=== PATIENT | female | born 1990 | race African-American/Black ===

== ENCOUNTER 2020-05-03 12:38 | Inpatient (IN) | payer SELFPAY ==
[~2020-05-03] VITALS: Ht 157.5 cm; Wt 61.2 kg
[2020-05-03] MEDS ORDERED: MORPHINE SULFATE 4 MG/ML CPJ (NOT FOR IM USE) IV STA (12:57)
[2020-05-03] MEDS ORDERED: ONDANSETRON HCL 4MG/2ML INJ IV STA (12:57)
[2020-05-03 13:12] LABS: BASOPHILS % 0.3 % (0.0-2.0); EOSINOPHILS % 0.3 % (0.0-5.0); HEMATOCRIT. 40.9 % (36.0-48.0); HEMOGLOBIN. 14.2 g/dL (12.0-16.0); LYMPHOCYTES % 9.9 % (20.0-50.0); MEAN CORPUSCULAR HEMOGLOBIN 33.9 pg (28.0-32.0); MEAN CORPUSCULAR VOLUME 97.6 fL (81.0-99.0); MEAN PLATELET VOLUME 7.8 fl (7.4-10.4); MONOCYTES % 3.4 % (2.0-8.0); NEUTROPHILS % 86.1 % (40.0-76.0); PLATELET 284 x1000/uL (130-400); RED BLOOD CELL COUNT 4.19 mill/uL (4.2-5.4); RED CELL DISTRIBUTION WIDTH 13.6 % (11.6-14.6)
[2020-05-03 13:19] LABS: CHLORIDE 111 mEq/L (98-107)
[2020-05-03 13:23] LABS: PROTHROMBIN TIME 10.4 sec (9.6-11.0)
[2020-05-03 13:31] LABS: HCG SCREEN NEGATIVE
[2020-05-03 13:39] LABS: CLARITY URINE CLEAR (CLEAR); COLOR URINE YELLOW (YELLOW); KETONES URINE TRACE (NEGATIVE); LEUKOCYTE ESTERASE URINE NEGATIVE (NEGATIVE); NITRITE URINE NEGATIVE (NEGATIVE); OCCULT BLOOD URINE NEGATIVE (NEGATIVE); PH URINE 7.5 (4.5-8.0); PROTEIN URINE NEGATIVE (NEGATIVE); SPECIFIC GRAVITY URINE 1.021 (1.005-1.030); UROBILINOGEN URINE 0.2 E.U./dL (0.2-1.0)
[2020-05-03] MEDS ORDERED: ACETAMINOPHEN 325MG TABLET PO ONE (14:30)
[2020-05-03] MEDS ORDERED: IPRATROPIUM/ALBUTEROL 0.5-3(2.5)MG/3ML NEB NEB PRN (15:45)
[2020-05-03] MEDS ORDERED: GUAIFENESIN 200MG/10ML SUGAR FREE UDC PO PRN (15:45)
[2020-05-03] MEDS ORDERED: NITROGLYCERIN 0.4MG TABLET SL SL PRN (15:45)
[2020-05-03] MEDS ORDERED: MAGNESIUM/ALUMINUM HYDROXIDE/SIMETHICONE 30ML UDC PO PRN (15:45)
[2020-05-03] MEDS ORDERED: LORAZEPAM 0.5MG TABLET PO PRN (15:45)
[2020-05-03] MEDS ORDERED: DOCUSATE SODIUM 100MG CAPSULE PO PRN (15:45)
[2020-05-03] MEDS ORDERED: CLONIDINE 0.1MG TABLET PO PRN (15:45)
[2020-05-03] MEDS ORDERED: ACETAMINOPHEN 325MG TABLET PO PRN ×2 (15:45)
[2020-05-03 16:00] VITALS: BP 148/91
[2020-05-03] MEDS ORDERED: ALBU2.5V13 NEB (17:49)
[2020-05-03] MEDS ORDERED: ALBU4TAB6 PO (17:49)
[2020-05-03] MEDS ORDERED: PROT20 PO (17:49)
[2020-05-03] MEDS ORDERED: ONDA4TAB5 PO (17:49)
[2020-05-03] MEDS: ONDANSETRON HCL 4MG/2ML INJ IV PRN (17:50)
[2020-05-03 18:02] VITALS: BP 148/91
[2020-05-03] MEDS: SUCRALFATE 1 G/10 ML UDC PO SCH (18:28)
[2020-05-03 20:00] VITALS: BP 152/89
[2020-05-03] MEDS ORDERED: ZOLPIDEM TARTRATE 5MG TABLET PO PRN (21:00)
[2020-05-03] MEDS ORDERED: DIPHENHYDRAMINE 25MG CAPSULE PO PRN (21:45)
[2020-05-03] MEDS: KETOROLAC 15MG/ML VIAL IV PRN (22:46)
[2020-05-04] VITALS: BP 137/95
[2020-05-04 03:06] LABS: *AMPHETAMINES SCREEN URINE NEGATIVE (NEGATIVE); *BARBITURATES SCREEN URINE NEGATIVE (NEGATIVE); *BENZODIAZEPINES SCREEN URINE NEGATIVE (NEGATIVE); *COCAINE SCREEN URINE NEGATIVE (NEGATIVE); METHADONE URINE SCREEN NEGATIVE (NEGATIVE)
[2020-05-04 03:07] LABS: PHENCYCLIDINE URINE SCREEN NEGATIVE (NEGATIVE)
[2020-05-04 03:23] LABS: CANNABINOID URINE SCREEN PRESUMTIVE POSITIVE (NEGATIVE); OPIATES URINE SCREEN PRESUMTIVE POSITIVE (NEGATIVE)
[2020-05-04 08:00] VITALS: BP 100/61
[2020-05-04] MEDS: ONDANSETRON HCL 4MG/2ML INJ IV PRN (08:24)
[2020-05-04] MEDS: SUCRALFATE 1 G/10 ML UDC PO SCH (08:24)
[2020-05-04] MEDS: KETOROLAC 15MG/ML VIAL IV PRN (08:26)
[2020-05-04] MEDS ORDERED: PANTOPRAZOLE SODIUM 40 MG/VIAL IV SCH (09:00)
[2020-05-04 10:53] VITALS: BP 100/61
== END 2020-05-04 11:18 | disposition home or self-care (01) | DRG 251 ==
LOC: ER 12:38 → 6EST 15:26 → EDBEDREQTM 15:31 → EDBEDREQ 15:31 → ENRESERV 16:42 → 6EST 18:03
PROVIDERS: ADMIT Internal Medicine; ATTEND Internal Medicine
DX: R10.9 Unspecified abdominal pain (principal); F12.10 Cannabis abuse, uncomplicated; K29.70 Gastritis, unspecified, without bleeding; K21.9 Gastro-esophageal reflux disease without esophagitis; Z86.19 Personal history of other infectious and parasitic diseases; Z88.8 Allergy status to other drugs, medicaments and biological substances; Z79.899 Other long term (current) drug therapy; Z76.5 Malingerer [conscious simulation]; Z88.6 Allergy status to analgesic agent
CPT/HCPCS: 36415; 74176; 80053; 80305; 81003; 83036; 84703; 85025; 93005; 93970; 99285; C9113; J1885; J2270; J2405